=== PATIENT | female | born 1965 | race Caucasian/White ===

== ENCOUNTER 2017-05-02 23:27 | Observation (INO) | payer OTHER ==
[2017-05-03] MEDS: ASPIRIN 325 MG TAB PO (00:02)
[2017-05-03 00:38] LABS: ADD MAN DIFF? NO
[2017-05-03 00:57] LABS: ADD UMIC YES; UR ASCORBIC ACID NEGATIVE (NEGATIVE); UR BILIRUBIN (Dip) NEGATIVE (NEGATIVE); UR BLOOD (Dip) 2+ mg/dL (NEGATIVE); UR CLARITY CLEAR (CLEAR); UR COLOR STRAW (YELLOW); UR GLUCOSE (Dip) NEGATIVE (NEGATIVE); UR KETONES (Dip) NEGATIVE (NEGATIVE); UR LEUKOCYTE ESTERASE (Dip) NEGATIVE Leu/ul (NEGATIVE); UR NITRITE (Dip) NEGATIVE (NEGATIVE); UR RBC 1 /HPF (0-5); UR SPECIFIC GRAVITY (Dip) 1.006 (1.003-1.030); UR TOTAL PROTEIN (Dip) NEGATIVE (NEGATIVE); UR UROBILINOGEN (Dip) NEGATIVE (NEGATIVE); UR WBC 0 /HPF (0-5)
[2017-05-03 01:00] LABS: BASOPHILS % 0.6 % (0.0-2.0); EOSINOPHILS % 0.5 % (0.0-7.0); HEMATOCRIT 35.6 % (37.0-47.0); LYMPHOCYTES # 2.3 10^3/ul (0.8-2.9); LYMPHOCYTES % 36.7 % (15.0-51.0); MEAN CORPUSCULAR HEMOGLOBIN 30.5 pg (29.0-33.0); MEAN CORPUSCULAR HGB CONC 33.7 g/dl (32.0-37.0); MEAN CORPUSCULAR VOLUME 90.4 fl (82.0-101.0); MEAN PLATELET VOLUME 10.6 fl (7.4-10.4); MONOCYTE # 0.7 10^3/ul (0.3-0.9); MONOCYTES % 10.7 % (0.0-11.0); NEUTROPHIL # 3.2 10^3/ul (1.6-7.5); NEUTROPHILS % 51.3 % (39.0-77.0); PLATELET COUNT 253 10^3/UL (140-415); RED BLOOD COUNT 3.94 10^6/ul (4.20-5.40); RED CELL DISTRIBUTION WIDTH 13.5 % (11.5-14.5)
[2017-05-03 01:00] LABS: WHITE BLOOD COUNT 6.2 10^3/ul (4.8-10.8)
[2017-05-03 01:16] LABS: ANION GAP 14 (8-16); BLOOD UREA NITROGEN 16 mg/dl (7-20); CALCIUM 8.8 mg/dl (8.4-10.2); CARBON DIOXIDE 25 mmol/L (21-31); CHLORIDE 106 mmol/L (97-110); CREATININE 0.78 mg/dl (0.44-1.00); GLUCOSE 143 mg/dl (70-220); POTASSIUM 3.8 mmol/L (3.5-5.1); SODIUM 141 mmol/L (135-144)
[2017-05-03] MEDS: LIDOCAINE/MYLANTA 40 ML BTL PO (01:25)
[2017-05-03 01:26] LABS: B-TYPE NATRIURETIC PEPTIDE 85 PG/ML (0-125)
[2017-05-03 01:27] LABS: TROPONIN-I < 0.012 ng/ml (0.00-0.12)
[2017-05-03] MEDS: NITROGLYCERIN (SL) 0.4 MG TAB SL (03:14)
[2017-05-03] MEDS: IOHEXOL 100 ML (04:10)
[2017-05-03] MEDS: SOD CHLORIDE 0.9% 100 ML (04:10)
[2017-05-03] MEDS ORDERED: NACL 0.9% 3 ML SYG IV (06:00)
[2017-05-03] MEDS ORDERED: morphine 2 MG INJ IV (06:00)
[2017-05-03] MEDS ORDERED: NITROGLYCERIN (SL) 0.4 MG TAB SL (06:00)
[2017-05-03] MEDS ORDERED: ONDANSETRON 4 MG INJ IV (06:00)
[2017-05-03 06:10] LABS: CREATINE KINASE 64 IU/L (23-200)
[2017-05-03 06:19] LABS: CK INDEX 0.3
[2017-05-03 06:25] LABS: CK-MB < 0.22 ng/ml (0.0-2.4); TROPONIN-I < 0.012 ng/ml (0.00-0.12)
[2017-05-03] MEDS: HYDROCODONE/APAP (5/325) TAB PO (06:43)
[2017-05-03] MEDS: METHYLPREDNISOLONE 40 MG INJ IV (08:44)
[2017-05-03] MEDS: ASPIRIN 81 MG TAB PO (08:44)
[2017-05-03] MEDS: ENOXAPARIN 40 MG/0.4 ML SYG SC (08:44)
[2017-05-03] MEDS: LEVOFLOXACIN 500MG/D5W (PMX) 100 ML IVPB (08:45)
[2017-05-03] MEDS: FERROUS SULFATE (EC) 325 MG TAB PO (09:08)
[2017-05-03] MEDS: HYDROCHLOROTHIAZIDE 12.5 MG CAP PO (09:09)
[2017-05-03] MEDS: FOLIC ACID 1 MG TAB PO (09:09)
[2017-05-03] MEDS ORDERED: ALBUTEROL/IPRATROPIUM (NEB) 3 ML AMP HHN (11:30)
[2017-05-03] MEDS: GUAIFENESIN/DM (SR) TAB PO (12:42)
[2017-05-03] MEDS: OSELTAMIVIR 75 MG CAP PO ×2 (12:42→20:51)
[2017-05-03] MEDS: ISOSORBIDE DINITRATE 10 MG TAB PO ×2 (12:42→20:51)
[2017-05-03] MEDS: ASCORBIC ACID 250 MG TAB PO (12:42)
[2017-05-03 13:23] LABS: CREATINE KINASE 61 IU/L (23-200)
[2017-05-03 13:37] LABS: CK INDEX 0.4
[2017-05-03 13:38] LABS: CK-MB < 0.22 ng/ml (0.0-2.4); TROPONIN-I < 0.012 ng/ml (0.00-0.12)
[2017-05-03] MEDS: AZITHROMYCIN 250 MG TAB PO (13:59)
[2017-05-03] MEDS: ALBUTEROL/IPRATROPIUM (NEB) 3 ML AMP HHN ×3 (15:17→20:22)
[2017-05-03] MEDS: ACETAMINOPHEN 325 MG TAB PO (16:07)
[2017-05-04] MEDS: ALBUTEROL/IPRATROPIUM (NEB) 3 ML AMP HHN ×5 (01:06→16:49)
[2017-05-04] MEDS ORDERED: LORAZEPAM 0.5 MG TAB (02:00)
[2017-05-04] MEDS: LORAZEPAM 1 MG TAB PO (02:02)
[2017-05-04 05:30] LABS: ADD MAN DIFF? NO
[2017-05-04 05:34] LABS: WHITE BLOOD COUNT 6.9 10^3/ul (4.8-10.8)
[2017-05-04 05:34] LABS: BASOPHILS % 0.1 % (0.0-2.0); EOSINOPHILS % 0.1 % (0.0-7.0); HEMATOCRIT 32.6 % (37.0-47.0); HEMOGLOBIN 11.1 g/dl (12.0-16.0); LYMPHOCYTES # 2.5 10^3/ul (0.8-2.9); LYMPHOCYTES % 35.5 % (15.0-51.0); MEAN CORPUSCULAR HEMOGLOBIN 30.5 pg (29.0-33.0); MEAN CORPUSCULAR VOLUME 89.6 fl (82.0-101.0); MEAN PLATELET VOLUME 10.4 fl (7.4-10.4); MONOCYTE # 1.1 10^3/ul (0.3-0.9); MONOCYTES % 15.3 % (0.0-11.0); NEUTROPHIL # 3.4 10^3/ul (1.6-7.5); NEUTROPHILS % 48.7 % (39.0-77.0); PLATELET COUNT 234 10^3/UL (140-415); RED BLOOD COUNT 3.64 10^6/ul (4.20-5.40); RED CELL DISTRIBUTION WIDTH 13.6 % (11.5-14.5)
[2017-05-04 06:08] LABS: ALANINE AMINOTRANSFERASE 43 IU/L (13-69); ALBUMIN 3.8 g/dl (3.3-4.9); ALBUMIN/GLOBULIN RATIO 1.08; ALKALINE PHOSPHATASE 66 IU/L (42-121); ANION GAP 16 (8-16); ASPARTATE AMINO TRANSFERASE 26 IU/L (15-46); BLOOD UREA NITROGEN 14 mg/dl (7-20); CALCIUM 9.4 mg/dl (8.4-10.2); CARBON DIOXIDE 27 mmol/L (21-31); CHLORIDE 104 mmol/L (97-110); CHOL/HDL RATIO 3.9 RATIO; CHOLESTEROL 160 mg/dl (100-200); CREATININE 0.53 mg/dl (0.44-1.00); GLUCOSE 150 mg/dl (70-220); HDL CHOLESTEROL 41 mg/dl (37-92); LDL CHOLESTEROL,CALCULATED 103 mg/dl; MAGNESIUM 2.2 mg/dl (1.7-2.5); POTASSIUM 3.3 mmol/L (3.5-5.1); SODIUM 144 mmol/L (135-144); TOTAL PROTEIN 7.3 g/dl (6.1-8.1); TRIGLYCERIDES 82 mg/dl (0-149)
[2017-05-04 06:32] LABS: THYROID STIMULATING HORMONE 0.977 MIU/L (0.465-4.680)
[2017-05-04 07:48] LABS: HEMOGLOBIN A1C 6.3 % (0-5.9)
[2017-05-04] MEDS: AZITHROMYCIN 250 MG TAB PO (08:28)
[2017-05-04] MEDS: ASPIRIN 81 MG TAB PO (08:28)
[2017-05-04] MEDS: HYDROCHLOROTHIAZIDE 25 MG TAB PO (08:28)
[2017-05-04] MEDS: OSELTAMIVIR 75 MG CAP PO (08:28)
[2017-05-04] MEDS: ASCORBIC ACID 250 MG TAB PO (08:29)
[2017-05-04] MEDS: ISOSORBIDE DINITRATE 10 MG TAB PO ×2 (08:29→12:08)
[2017-05-04] MEDS: GUAIFENESIN/DM (SR) TAB PO (08:29)
[2017-05-04] MEDS: BENAZEPRIL 20 MG TAB PO (08:29)
[2017-05-04] MEDS: ENOXAPARIN 40 MG/0.4 ML SYG SC (08:31)
[2017-05-04] MEDS: IBUPROFEN 400 MG TAB PO (13:17)
[2017-05-04] MEDS: POTASSIUM CHLORIDE (SR) 20 MEQ TAB PO (13:18)
== END 2017-05-04 16:45 | disposition home or self-care (01) ==
LOC: E/R 23:27 → MS3 05-03 02:51
DX: R07.89 Other chest pain (principal); J11.1 Influenza due to unidentified influenza virus with other respiratory manifestations; I10 Essential (primary) hypertension; F41.9 Anxiety disorder, unspecified; Z88.1 Allergy status to other antibiotic agents; Z98.51 Tubal ligation status; Z83.3 Family history of diabetes mellitus; Z82.49 Family history of ischemic heart disease and other diseases of the circulatory system
CPT/HCPCS: 36415; 71045; 71275; 80048; 80053; 80061; 81001; 82550; 82553; 83036; 83735; 83880; 84443; 84484; 85025; 87400; 93005; 93306; 94640; 94664; 96372; 96374; 96375; 99217; 99285-25

== ENCOUNTER → 2017-08-14 | Outpatient (CLI) | payer OTHER ==
[~2017-08-14] MED LIST: METOPROLOL 100 MG TAB PO
[2017-08-14 11:35] LABS: ANION GAP 12 (8-16); BLOOD UREA NITROGEN 9 mg/dl (7-20); CALCIUM 9.1 mg/dl (8.4-10.2); CARBON DIOXIDE 31 mmol/L (21-31); CHLORIDE 106 mmol/L (97-110); CREATININE 0.55 mg/dl (0.44-1.00); GLUCOSE 101 mg/dl (70-220); POTASSIUM 3.9 mmol/L (3.5-5.1); SODIUM 145 mmol/L (135-144)
[2017-08-14] MEDS: METOPROLOL 100 MG TAB (13:38)
[2017-08-14] MEDS: NITROGLYCERIN AEROSOL (4.9 GM) (14:55)
[2017-08-14] MEDS: SOD CHLORIDE 0.9% 100 ML (15:04)
[2017-08-14] MEDS: IOHEXOL 100 ML (15:05)
[2017-08-14] MEDS: IOHEXOL 350MG/ML 50 ML BTL (15:06)
== END | disposition home or self-care (01) ==
LOC: LAB 10:32
DX: R06.02 Shortness of breath (principal)
CPT/HCPCS: 75574; 80048